=== PATIENT | male | born 1985 | race Two or more races ===

== ENCOUNTER 2018-05-22 07:43 | Emergency (ER) | payer BC ==
[~2018-05-22] VITALS: Ht 165.1 cm; Wt 72.6 kg
[~2018-05-22 07:43] MED LIST: ELOCON45 G1 TOP; VOLTAREM 50 MG PO
== END 2018-05-22 09:36 | disposition home or self-care (01) ==
LOC: ER 07:43
DX: J31.1 Chronic nasopharyngitis (principal)

== ENCOUNTER 2018-06-28 03:14 | Emergency (ER) | payer BC ==
[~2018-06-28] VITALS: Ht 165.1 cm; Wt 70.3 kg
[2018-06-28] MEDS ORDERED: AMOX-CLAV 875-1 EACH PO (07:50)
[2018-06-28] MEDS ORDERED: KETO10TA2 PO (07:50)
[2018-06-28] MEDS ORDERED: ORASEP SPRAY30 ML MM (07:50)
== END 2018-06-28 07:56 | disposition home or self-care (01) ==
LOC: ER 03:14
DX: J06.9 Acute upper respiratory infection, unspecified (principal)

== ENCOUNTER 2018-12-28 07:25 | Emergency (ER) | payer BC ==
[~2018-12-28] VITALS: Ht 165.1 cm; Wt 71.7 kg
[~2018-12-28 07:25] MED LIST changes: +AMOX-CLAV 875-1 EACH PO; +KETO10TA2 PO; +ORASEP SPRAY30 ML MM
== END 2018-12-28 10:35 | disposition home or self-care (01) ==
LOC: ER 07:25
DX: S00.86XA Insect bite (nonvenomous) of other part of head, initial encounter (principal); W57.XXXA Bitten or stung by nonvenomous insect and other nonvenomous arthropods, initial encounter; Y93.89 Activity, other specified; Y92.89 Other specified places as the place of occurrence of the external cause; Y99.8 Other external cause status